=== PATIENT | female | born 1960 | race Caucasian/White ===

== ENCOUNTER 2016-12-08 17:26 | Emergency (ER) | payer OTHER ==
--- NOTE | 2016-12-08 18:37 | RAD ---
3 VIEWS LUMBAR SPINE: Date: 12/08/16 HISTORY: Right hip pain after tripping and falling on knees last week. FINDINGS: There are five non-rib bearing lumbar-type vertebral bodies. Multilevel degenerative changes are see n in the lower thoracic and upper lumbar spine. Narrowing of the intervertebral disc spaces at multi ple levels of the lower thoracic and upper lumbar spine are also present. There is exaggerated kypho sis of the lower thoracic spine. There is trace retrolisthesis of L2 on L3 and L3 on L4 with trace Grade I anterolisthesis of L4 on L 5, and to a greater degree L5 on S1. Facet degenerative change seen in the lower lumbar spine. No fr acture is seen. There is mild wedge-shaped deformity involving the T12 vertebral body. This was evlira lar in appearance to MRI of lumbar spine on 02/18/15. Levels of retrolisthesis and anterolisthesis w ere also present on that exam. IMPRESSION: 1. Multilevel degenerative changes involving the lumbar spine with trace retrolisthesis of L2 on L3 and L3 on L4 with trace Grade I anterolisthesis of L4 on L5, and to a greater degree of L5 on S1. 2. 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 POS: [facility]
--- NOTE | 2016-12-08 18:38 | RAD ---
2 VIEWS RIGHT HIP: Date: 12/08/16 HISTORY: Right hip pain after tripping and falling on knees last week. FINDINGS: Metallic screw overlies the junction of the inferior pubic ramus and pubic bone. There is no evidenc e of a fracture or dislocation. No significant joint space narrowing is appreciated. Phleboliths ove rlie the pelvis. IMPRESSION: No acute osseous abnormality right hip. POS: [facility]
== END 2016-12-08 18:40 | disposition home or self-care (01) ==
LOC: SCSER 17:26
DX: M54.31 Sciatica, right side (principal); I10 Essential (primary) hypertension; Z79.899 Other long term (current) drug therapy; W19.XXXA Unspecified fall, initial encounter
CPT/HCPCS: 72100

== ENCOUNTER 2017-01-15 14:31 | Outpatient (CLI) | payer OTHER ==
--- NOTE | 2017-01-15 16:31 | RAD ---
FIVE VIEWS LUMBAR SPINE: 01/15/17 HISTORY: Patient fell on knees two months ago and since this time has had buttock pain with pain radiating do wn right leg. COMPARISON: 12/08/16. FINDINGS: Again noted are five nonribbearing lumbar type vertebral bodies. There is stable trace retrolisthesi s of L2 on L3 and L3 on L4 with trace grade I anterolisthesis of L4 on L5 and to a greater degree L5 on S1. Vertebral body heights remain within normal limits. Multilevel osteophytes are again present, greate r involving the lower thoracic and upper lumbar spine. No fracture is seen. There has been no interv al change when compared to the prior exam. The trace anterolisthesis of L4 on L5 does appear to derrick ect between the flexion and extension views. The degree of anterolisthesis at the L5-S1 level does n ot appear to correct. IMPRESSION: 1. Multilevel degenerative changes involving the lumbar spine again with trace retrolisthesis o f L2 on L3 and L3 on L4 with grade I anterolisthesis of L4 on L5 and L5 on S1. The anterolisthesis a t the L4-5 level does correct between the flexion and extension views. 2. Chronic mild wedge shaped deformity of T12 vertebral body. POS: [facility]
--- NOTE | 2017-01-15 16:35 | RAD ---
CERVICAL SPINE FIVE VIEWS INCLUDING FLEXION AND EXTENSION LATERAL VIEWS. 01/15/17 HISTORY: 56-year-old female with neck pain for one year with pain radiating down right arm. Extensive multilevel disc osteophytosis and facet arthrosis. 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 There is fairly marked abnormal translation with anterolisthesis at C4-C5 and C5-C6 particularly in flexion with reduction of the anterolisthesis in extension. No significant pr evertebral soft tissue swelling. Uncovertebral and facet arthrosis changes. C1 and odontoid are part ially obscured on the AP open mouth view. IMPRESSION: Abnormal translation between flexion and extension at C4-C5 and C5-C6 which with much worsening ante rolisthesis in flexion rather than extension. 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 No evidence for other significant acute process. POS: [facility]
--- NOTE | 2017-01-15 16:47 | MRI ---
MRI CERVICAL SPINE NONCONTRAST: 01/15/17 HISTORY: Neck pain with right arm radiculopathy. FINDINGS: Bone marrow signal is within normal limits. There is desiccation of all the intervertebral discs. Re versal of the normal lordotic curvature of the lower cervical spine is apparent. C2-3: There is mild osteophytosis. The central canal and neural foraminal are patent. 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 The central canal and neural foramina remain patent. C4-5: There is 0.4 cm spondylolisthesis. Posterior osteophyte/disc complex, along with facet joint h ypertrophy and ligamentous thickening, result in severe stenosis of the central canal and moderate f lattening of the right ventral aspect of the spinal cord. No abnormal signal is apparent within the cord. There is severe right and moderate left foraminal stenosis. C5-6: There is 0.4 cm spondylolisthesis. circumferential degenerative changes result in severe steno sis of the central canal. No abnormal signal is apparent within the spinal cord. Uncovertebral and f acet hypertrophy result in severe left foraminal stenosis. The right neural foramen is patent. C6-7: There is disc space narrowing and minimal degenerative retrolisthesis. Circumferential degener ative changes result in severe central canal stenosis. Posterior osteophyte/disc complex is greater on the right, flattening the right ventral aspect of the spinal cord. No abnormal signal is apparent within the spinal cord. There is moderate right and severe left foraminal stenoses. C7-T1: There is disc space narrowing and minimal degenerative spondylolisthesis. Posterior disc prot rusion at this level is slightly greater to the right of midline, flattening the ventral and right v entral aspect of the spinal cord by approximately 30%. No abnormal signal is apparent within the spi nal cord. Uncovertebral and facet hypertrophy results in mild stenosis of each neural foramen at thi s level. IMPRESSION: Severe multilevel degenerative changes throughout the cervical spine, with central canal and foramin al stenoses as detailed above. No evidence of myelomalacia. POS: [facility]
--- NOTE | 2017-01-15 18:05 | MRI ---
MRI LUMBAR SPINE NONCONTRAST 01/15/17 HISTORY: Low back pain with radiation to right leg. FINDINGS: The conus medullaris has a normal appearance. There is desiccation of all of the intervertebral disc s. Discogenic end plate changes are present throughout the bone marrow. There are degenerative gant es of the lower thoracic spine with posterior disc protrusion partially visualized at the T10-11 lev el, greater to the left of midline. Mild chronic appearing wedging of the T1 and T12 vertebral shama s is apparent without residual bone marrow edema. T12-L1: There is disc space narrowing and osteophytosis. The central canal and neural foramina are p atent. L1-2: There is disc space narrowing and minimal degenerative retrolisthesis. Posterior disc bulge, a long with facet joint hypertrophy and ligamentous thickening, results in mild stenosis of the centra l canal and each neural foramen. L2-3: There is mild disc bulge. Osteophytosis involves each facet. The thecal sac remains patent. M ild stenosis of each neural foramen is apparent. L3-4: Posterior disc bulge, along with facet joint hypertrophy and ligamentous thickening, results i n mild stenosis of the central canal and each neural foramen. L4-5: There is very mild disc bulge. Prominent facet hypertrophy and ligamentous thickening is great er on the right than on the left. There is resultant very severe stenosis of the central canal and r ight neural foramen and moderate stenosis of the left neural foramen. L5-S1: Mild disc bulge is present. Degenerative changes result in mild stenosis of the central canal and moderate stenosis of each neural foramen. IMPRESSION: Prominent multilevel degenerative changes throughout the lumbar spine as detailed above, with centra l canal and right foraminal stenoses greatest at the L4-5 level. POS: [facility]
== END 2017-01-15 14:32 | disposition home or self-care (01) ==
LOC: SCSMRI 14:31
PROVIDERS: ATTEND Surgery
DX: M47.22 Other spondylosis with radiculopathy, cervical region (principal); M47.26 Other spondylosis with radiculopathy, lumbar region; M43.12 Spondylolisthesis, cervical region; M43.8X4 Other specified deforming dorsopathies, thoracic region; M99.83 Other biomechanical lesions of lumbar region; M99.81 Other biomechanical lesions of cervical region
CPT/HCPCS: 72050; 72110; 72141; 72148

== ENCOUNTER 2017-02-15 13:00 | Inpatient (IN) | payer OTHER ==
[2017-02-15 13:28] VITALS: BMI 35.4
[2017-02-18] MEDS ORDERED: Sodium Chloride 0.9% 10 ML ONE (12:10)
[2017-02-18] MEDS ORDERED: Thrombin 5000 UNITS/5 ML VIAL ONE (12:10)
[2017-02-18] MEDS ORDERED: Midazolam HCl 2 mg/2 ml Vial ONE (13:15)
[2017-02-18] MEDS ORDERED: Fentanyl 100 MCG/2 ML VIAL ONE ×4 (14:37→17:22)
[2017-02-18] MEDS ORDERED: Acetaminophen/Codeine 30-300mg Tablet PO PRN (16:50)
[2017-02-18] MEDS ORDERED: Fleet Enema 133 ML BOT PR PRN (16:50)
[2017-02-18] MEDS ORDERED: Bisacodyl 10 MG SUPP PR PRN (16:50)
[2017-02-18] MEDS ORDERED: Ondansetron HCl/PF 4 MG/2 ML Vial IVP PRN ×2 (16:50→16:58)
[2017-02-18] MEDS ORDERED: traMADol HCl 50 MG TAB PO PRN (16:50)
[2017-02-18] MEDS ORDERED: Milk Of Magnesia 30 ML UDCUP PO PRN (16:50)
[2017-02-18] MEDS ORDERED: Acetaminophen 325 MG TAB PO PRN (16:50)
[2017-02-18] MEDS ORDERED: Mag-Al 1200 mg/1200 mg/30 ML UDCUP PO PRN (16:50)
[2017-02-18] MEDS ORDERED: Promethazine HCl 25 MG/ML VIAL IM PRN ×2 (16:50→16:58)
[2017-02-18] MEDS ORDERED: diphenhydrAMINE 25 MG CAP PO PRN (16:53)
[2017-02-18] MEDS ORDERED: Promethazine HCl 25 MG/ML VIAL SLOW IVP PRN (16:58)
[2017-02-18] MEDS ORDERED: Dexamethasone 20 MG/5 ML VIAL ONE (17:02)
[2017-02-18] MEDS ORDERED: Ketorolac Tromethamine 30 MG/ML VIAL ONE (17:02)
[2017-02-18] MEDS ORDERED: Propofol 200 MG/20 ML VIAL ONE (17:02)
[2017-02-18] MEDS ORDERED: Ondansetron HCl/PF 4 MG/2 ML Vial ONE (17:02)
[2017-02-18] MEDS ORDERED: Vecuronium 10 MG VIAL ONE (17:02)
[2017-02-18] MEDS ORDERED: Glycopyrrolate 0.2 MG/ML 5 ML SYRINGE ONE (17:02)
[2017-02-18] MEDS: Morphine 4 MG/ML VIAL SLOW IVP PRN ×2 (19:50→22:31)
[2017-02-18] MEDS: Sodium Chloride 0.9% 1,000 ML IV SCH (19:50)
[2017-02-18] MEDS: CEFAZOLIN/Water 2 GM/20 ML SYRINGE SLOW IVP SCH (19:51)
[2017-02-18] MEDS: Lisinopril 10 MG TAB PO SCH (19:51)
[2017-02-18] MEDS: tiZANidine HCl 4 MG TAB PO PRN (19:52)
[2017-02-18] MEDS ORDERED: Milnacipran Hcl [Savella] 100 MG PO SCH ×2 (21:00)
[2017-02-18] MEDS ORDERED: clonazePAM 0.5 MG TAB PO SCH (21:00)
[2017-02-18] MEDS ORDERED: Nitrofurantoin Monohyd/M-Cryst 100 MG CAP PO SCH (21:00)
--- NOTE | 2017-02-18 22:11 | OP ---
DATE OF PROCEDURE: 02/19/2017 OR: OR #12 WOUND TYPE: Type 1 wound. SURGEON: Jose Luis Calix M.D. SUPERVISOR TOY ASSEMBLY: Zuhair Sheets PA-C PREPROCEDURE DIAGNOSIS: Mobile subluxation with neck and arm pain. POSTPROCEDURE DIAGNOSIS: Mobile subluxation with neck and arm pain. PROCEDURE: 1. Anterior C4-C5 and C5-C6 diskectomies with decompression of the common dural tube in the C5 and C 6 nerve roots. 2. Placement of interbody spacers C4-C5, C5-C6, packed with graft C4-C5, C5-C6 for arthrodesis. 3. Anterior cervical plate and screw fixation, C4, C5, C6. 4. Use of operative microscope for microdissection. PROCEDURE: After informed consent was obtained from the patient, the patient was brought to OR 12. Proper patient pause and identification was carried out. She was placed under excellent general endo tracheal anesthesia and positioned supine on the operating room table. All appropriate points were p added. We identified an anterior oblique meaghan that would allow from the right side an approach to C4 , C5, C6 segments. These regions were sterilely cleansed, prepared, and draped. Proper patient paus e and identification was carried out. The wound was then opened with a combination of sharp, monopol ar, and blunt dissection and we proceeded lateral to the larynx and pharynx and medial to the right c arotid sheath. We identified the prevertebral layer of deep cervical fascia and the longus colli mus cles were swept laterally. Distraction at C4-C5 then occurred in the spondylolisthesis was quite manisha dent. The disk space was then entered and the microscope was used for microdissection. We obtained excellent decompression of the common dural tube in the C5 nerve roots with the removal of the disk a nd preparation of the endplates. Interbody spacer of appropriate dimension was packed with graft and placed in C4-C5 for arthrodesis. We then turned our attention distraction at C5-C6 and a discectomy at C5-C6 was preformed as well. Excellent decompression of the common dural tube in the C6 nerve ro ots was then performed and interbody spacer of appropriate dimension was then packed with graft and a lso positioned at C5-C6. Satisfied with our decompression and our placement of the spacer, the micro scope was then removed and anterior cervical plate and screw fixation occurred at C4, C5, C6 with fin al tightening occurring. We were satisfied with both gross and fluoroscopic visualization of our con struct. Copious irrigation occurred throughout as is hemostasis. The wound was then closed in anato melina layers over a drain. The patient then emerged from anesthesia.
[2017-02-19] MEDS: CEFAZOLIN/Water 2 GM/20 ML SYRINGE SLOW IVP SCH ×2 (01:34→11:59)
[2017-02-19] MEDS: HYDROcodone/Acetaminophen 7.5/325 mg Tablet PO PRN ×3 (01:34→09:19)
[2017-02-19] MEDS: Sodium Chloride 0.9% 1,000 ML IV SCH (04:19)
[2017-02-19 04:35] VITALS: TEMP 98.6
[2017-02-19] MEDS: tiZANidine HCl 4 MG TAB PO PRN ×2 (05:18→11:39)
[2017-02-19] MEDS: Lisinopril 10 MG TAB PO SCH (08:38)
[2017-02-19] MEDS ORDERED: Loratadine 10 MG TAB PO SCH (09:00)
[2017-02-19] MEDS ORDERED: Folic Acid 1 MG TAB PO SCH (09:00)
[2017-02-19] MEDS ORDERED: Cholecalciferol (Vitamin D3) 400 UNITS TAB PO SCH (09:00)
[2017-02-19] MEDS ORDERED: Multivit, Therapeutic 1 TAB PO SCH (09:00)
[2017-02-19] MEDS ORDERED: Modafinil 100 MG TAB PO SCH (09:00)
--- NOTE | 2017-02-19 09:14 | PRG ---
DATE OF SERVICE: 02/19/2017 Ms. Cano is postoperative day 1 from C4-C6 ACDF. She is doing well, as expected, she has neck and shoulder pain simply from surgical stabilization and essential changes in her alignment. Otherwise s he moves all extremities to command. Her drain output has been minimal. We went over intraoperative and postoperative issues and we will plan for dismissal.
[2017-02-19 12:27] VITALS: BP 132/74
[2017-02-19] MEDS ORDERED: Estradiol 1 MG TAB PO SCH (21:00)
== END 2017-02-19 12:30 | disposition home or self-care (01) | DRG 472 ==
LOC: SURG A 02-18 09:32 → SURG B 02-18 18:17
PROVIDERS: ADMIT Surgery; ATTEND Surgery
PROC: 0RT30ZZ Resection of Cervical Vertebral Disc, Open Approach (ICD-10-PCS; principal; 2017-02-19)
PROC: 0RG20J0 Fusion of 2 or more Cervical Vertebral Joints with Synthetic Substitute, Anterior Approach, Anterior Column, Open Approach (ICD-10-PCS; 2017-02-19)
DX: M43.12 Spondylolisthesis, cervical region (principal); M47.12 Other spondylosis with myelopathy, cervical region; M54.12 Radiculopathy, cervical region; M79.7 Fibromyalgia; M71.38 Other bursal cyst, other site; M51.36 Other intervertebral disc degeneration, lumbar region
CPT/HCPCS: 36416; 76000; 80048; 85027; 85610; 85730; 93005; 93010; A4216; C1713; C1768; J1100; J1885; J2250; J2270; J2405; J2704; J3010; J3490

== ENCOUNTER 2017-02-15 13:10 | Outpatient (CLI) | payer OTHER ==
[2017-02-15 14:51] LABS: Hematocrit 36.5 % (36.0-47.0); Mean Platelet Volume 6.5 fL (7.4-10.4); Red Blood Cell (RBC) Count 3.82 mill/uL (4.20-5.40); White Blood Cell (WBC) Count 9.9 thou/uL (4.8-10.8)
[2017-02-15 14:59] LABS: PTT 28.8 SEC (22.9-36.1); Prothrombin Time 12.8 SEC (12.0-14.7)
[2017-02-15 15:19] LABS: Anion Gap 10 mmol/L (10-20); BUN (Urea Nitrogen) 13 mg/dL (9.8-20.1); Calc. Creatinine Clearance 0 mL/min (70-130); Calcium 8.8 mg/dL (7.8-10.44); Carbon Dioxide 25 mmol/L (22-29); Chloride 111 mmol/L (98-107); Estimated GFR-MDRD 73
--- NOTE | 2017-02-15 18:11 | EKG ---
Test Reason : Blood Pressure : / mmHG Vent. Rate : 091 BPM Atrial Rate : 091 BPM P-R Int : 160 ms QRS Dur : 090 ms QT Int : 364 ms P-R-T Axes : 031 008 008 degrees QTc Int : 447 ms Normal sinus rhythm Moderate voltage criteria for LVH, may be normal variant Borderline ECG When compared with ECG of 04-SEP-2014 12:23, T wave inversion now evident in Inferior leads , particularly III and aVF Confirmed by MICHELLE GUERRIER ([id number]) on 02/15/2017 6:11:05 PM Referred By: GIBRAN Confirmed By:MICHELLE GUERRIER
== END 2017-02-15 13:11 | disposition home or self-care (01) ==
LOC: LABBT 13:10
PROVIDERS: ATTEND Surgery
DX: Z01.818 Encounter for other preprocedural examination (principal); M54.12 Radiculopathy, cervical region; M47.12 Other spondylosis with myelopathy, cervical region
CPT/HCPCS: 80048; 85027; 85610; 85730; 93005; 93010

== ENCOUNTER 2017-03-29 12:37 | Outpatient (CLI) | payer OTHER ==
--- NOTE | 2017-03-29 13:54 | RAD ---
CERVICAL SPINE 2 VIEWS: Date: 03/29/17 HISTORY: M54.12, cervical radiculopathy. COMPARISON: None. FINDINGS: There is ACDF hardware at C4-C6. No significant osseous appropriation of the disc spaces. 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 Relative to the prior MRI examination, the listhesis at C4-5 is improved. No evidence for hardware failure. FINDINGS: Satisfactory appearance to the ACDF hardware without hardware complication. POS: [facility]
== END 2017-03-29 12:38 | disposition home or self-care (01) ==
LOC: TBSIIMAG 12:37
PROVIDERS: ATTEND Surgery
DX: M54.12 Radiculopathy, cervical region (principal); Z98.1 Arthrodesis status
CPT/HCPCS: 72040

== ENCOUNTER 2017-07-16 09:00 | Outpatient (CLI) | payer OTHER ==
[2017-07-16 14:55] LABS: Mean Corpuscular HGB CONC 33.9 g/dL (32.0-36.0); Mean Corpuscular Hemoglobin 32.5 pg (27.0-31.0); Mean Corpuscular Volume 95.7 fl (81.0-99.0); Mean Platelet Volume 6.6 fL (7.4-10.4); Platelet Count 214 thou/uL (130-400); RBC Distribution Width 11.2 % (11.5-14.5); Red Blood Cell (RBC) Count 3.68 mill/uL (4.20-5.40)
[2017-07-16 15:01] LABS: Prothrombin Time 13.6 SEC (12.0-14.7)
[2017-07-16 15:17] LABS: Anion Gap 10 mmol/L (10-20); BUN (Urea Nitrogen) 13 mg/dL (9.8-20.1); Calc. Creatinine Clearance 0 mL/min (70-130); Calcium 8.7 mg/dL (7.8-10.44); Carbon Dioxide 25 mmol/L (22-29); Chloride 109 mmol/L (98-107); Estimated GFR-MDRD 71; Glucose 111 mg/dL (70-105); Potassium 4.5 mmol/L (3.5-5.1); Sodium 139 mmol/L (136-145)
--- NOTE | 2017-07-16 16:49 | EKG ---
Test Reason : Blood Pressure : / mmHG Vent. Rate : 081 BPM Atrial Rate : 081 BPM P-R Int : 168 ms QRS Dur : 086 ms QT Int : 356 ms P-R-T Axes : 034 010 023 degrees QTc Int : 413 ms Normal sinus rhythm Minimal voltage criteria for LVH, may be normal variant Borderline ECG When compared with ECG of 15-FEB-2017 13:51, No significant change was found Confirmed by DR. Pippa SIMONS ([id number]) on 07/16/2017 4:49:08 PM Referred By: GIBRAN Confirmed By:DR. Pippa SIMONS
== END 2017-07-16 09:01 | disposition home or self-care (01) ==
LOC: LABBT 09:00
PROVIDERS: ATTEND Surgery
DX: Z01.818 Encounter for other preprocedural examination (principal); M71.30 Other bursal cyst, unspecified site; M51.16 Intervertebral disc disorders with radiculopathy, lumbar region
CPT/HCPCS: 80048; 85027; 85610; 85730; 93005; 93010

== ENCOUNTER 2017-07-20 10:19 | Day surgery (SDC) | payer OTHER ==
[2017-07-20] MEDS ORDERED: CEFAZOLIN/Water 2 GM/20 ML SYRINGE ONE (12:56)
[2017-07-20] MEDS ORDERED: Glycopyrrolate 0.2 MG/ML 5 ML SYRINGE ONE (13:27)
[2017-07-20] MEDS ORDERED: Metoclopramide HCl 10 MG/2 ML VIAL ONE ×2 (13:27→15:27)
[2017-07-20] MEDS ORDERED: PROPOFOL 200 MG/20 ML VIAL ONE (13:27)
[2017-07-20] MEDS ORDERED: ePHEDrine/0.9% NaCl/PF SYRINGE 50 mg/10 ml ONE (13:27)
[2017-07-20] MEDS ORDERED: Ondansetron HCl/PF 4 MG/2 ML Vial ONE ×2 (13:27→15:27)
[2017-07-20] MEDS ORDERED: Ketorolac Tromethamine 30 MG/ML VIAL ONE (13:27)
[2017-07-20] MEDS ORDERED: Dexamethasone 20 MG/5 ML VIAL ONE (13:27)
[2017-07-20] MEDS ORDERED: PHENYLEPHRINE-NS 100 MCG/ML 10 ML SYRINGE ONE (13:27)
[2017-07-20] MEDS ORDERED: Lidocaine 1% PF 5 ML VIAL ONE (13:27)
[2017-07-20] MEDS ORDERED: Bacitracin Zinc Ointment 30 gm TUBE ONE (13:45)
[2017-07-20] MEDS ORDERED: Thrombin 5000 UNITS/5 ML VIAL ONE (13:45)
[2017-07-20] MEDS ORDERED: Sodium Chloride 0.9% 10 ML ONE (13:45)
[2017-07-20] MEDS ORDERED: Fentanyl 100 MCG/2 ML VIAL ONE ×3 (13:48→17:23)
[2017-07-20] MEDS ORDERED: Midazolam HCl 2 mg/2 ml Vial ONE ×2 (14:15→14:16)
[2017-07-20] MEDS ORDERED: HYDROmorphone 0.5 MG/0.5 ML SYRINGE ONE (16:30)
[2017-07-20] MEDS ORDERED: Milk Of Magnesia 30 ML UDCUP PO PRN (16:56)
[2017-07-20] MEDS ORDERED: Bisacodyl 10 MG SUPP PR PRN (16:56)
[2017-07-20] MEDS ORDERED: traMADol HCl 50 MG TAB PO PRN (16:56)
[2017-07-20] MEDS ORDERED: Promethazine HCl 25 MG/ML VIAL IM PRN (16:56)
[2017-07-20] MEDS ORDERED: Acetaminophen 325 MG TAB PO PRN (16:56)
[2017-07-20] MEDS ORDERED: Acetaminophen/Codeine 30-300mg Tablet PO PRN (16:56)
[2017-07-20] MEDS ORDERED: Fleet Enema 133 ML BOT PR PRN (16:56)
[2017-07-20] MEDS ORDERED: tiZANidine HCl 4 MG TAB PO PRN (16:56)
[2017-07-20] MEDS ORDERED: Morphine 4 MG/ML VIAL SLOW IVP PRN (16:56)
[2017-07-20] MEDS ORDERED: Mag-Al 1200 mg/1200 mg/30 ML UDCUP PO PRN (16:56)
[2017-07-20] MEDS ORDERED: Sodium Chloride 0.9% 1,000 ML IV SCH (17:00)
[2017-07-20] MEDS ORDERED: diphenhydrAMINE 25 MG CAP PO PRN (17:01)
[2017-07-20 18:46] VITALS: BMI 37.8
[2017-07-20] MEDS: Lisinopril 10 MG TAB PO SCH (20:17)
[2017-07-20] MEDS: Cyclobenzaprine 10 MG TAB PO SCH (20:17)
[2017-07-20] MEDS: HYDROcodone/Acetaminophen 7.5/325 mg Tablet PO PRN (20:17)
[2017-07-20] MEDS ORDERED: Milnacipran Hcl [Savella] 100 MG PO SCH (21:00)
[2017-07-20] MEDS ORDERED: clonazePAM 0.5 MG TAB PO SCH (21:00)
[2017-07-20] MEDS ORDERED: Estradiol 1 MG TAB PO SCH (21:00)
[2017-07-20] MEDS: CEFAZOLIN/Water 2 GM/20 ML SYRINGE SLOW IVP SCH (21:51)
[2017-07-21] MEDS: CEFAZOLIN/Water 2 GM/20 ML SYRINGE SLOW IVP SCH (06:50)
[2017-07-21] MEDS: Lisinopril 10 MG TAB PO SCH (08:53)
[2017-07-21] MEDS: Cyclobenzaprine 10 MG TAB PO SCH (08:54)
[2017-07-21] MEDS ORDERED: Loratadine 10 MG TAB PO SCH (09:00)
[2017-07-21] MEDS ORDERED: Modafinil 100 MG TAB PO SCH (09:00)
[2017-07-21] MEDS ORDERED: Multivit, Therapeutic 1 TAB PO SCH (09:00)
[2017-07-21] MEDS: HYDROcodone/Acetaminophen 7.5/325 mg Tablet PO PRN (09:12)
[2017-07-21 11:43] VITALS: BP 128/80; TEMP 98.2
--- NOTE | 2017-07-21 12:44 | OP ---
DATE OF SURGERY: 07/20/2017 PREPROCEDURE DIAGNOSES: L4-5 synovial cyst with low back and right greater than left leg pain with l umbosacral stenosis. SURGEON: Jose Luis Calix M.D. ASSISTANT PROFESSOR OF MARINE BIOLOGY: Zuhair Sheets PA-C. PROCEDURES: 1. L4-L5 synovial cyst resection. 2. L5-S1 laminectomy, partial facetectomy, and foraminotomies. DESCRIPTION OF PROCEDURE: After informed consent was obtained from the patient, patient was brought to OR 12. Proper patient pause and identification was carried out. The L4-L5, L5-S1 segments were i dentified. A linear meaghan was made over this region. This area was sterilely cleansed, prepared, and draped. Proper patient pause and identification was carried out. The wound was then opened with a combination of sharp monopolar and blunt dissection. The L4-L5, L5-S1 segments were exposed and loca lization film confirmed our area of interest. We then performed an L4-L5 laminectomy and synovial cy st resection. The cyst was quite adherent to the dura. Her dura was also quite attenuated and thin, but there was no spinal fluid leak. I assured freedom of bilateral L4 and L5 nerve roots. I then t urned my attention to L5-S1 laminectomy, partial facetectomy and foraminotomies with excellent decomp ression of the S1 nerve roots as well. Again, there was no spinal fluid leak. Copious irrigation oc curred. Hemostasis was maximized throughout. The wound was then closed in anatomic layers. The pat ient was then emerged from anesthesia.
--- NOTE | 2017-07-21 16:57 | DIS ---
Zuhair Sheets PA-C., dictating for Jose Luis Calix MD DATE OF ADMISSION: 07/20/2017 DATE OF DISCHARGE: 07/21/2017 DISCHARGE DIAGNOSES: 1. Low back pain with bilateral leg radiculopathy. 2. Lumbar stenosis. 3. Lumbar synovial cyst. HOSPITAL COURSE: Ms. Cano was admitted on 07/20/2017 to undergo L4-S1 laminectomies, removal of a facet cyst on the right at L4-5. Postoperatively, the patient states she is doing well. She states her incision causes her pain. In regard to her bilateral lower extremity pain, she states she is uns ure if this is improved postoperatively, although perhaps maybe a slight improvement after all. She currently meets our criteria for discharge. She has good strength in the bilateral lower extremities with intact sensation to light touch throughout. I have provided prescriptions, appropriate patient education, and outpatient followups have been scheduled. Patient really overall is pleased with her outcome postoperatively, but does understand she needs continued time to heal. She will call the [facility] with any questions or concerns prior to her next followup appointment.
== END 2017-07-21 12:25 | disposition home or self-care (01) ==
LOC: SDC 10:19 → SURG B 18:01 → SDC 07-21 12:25
PROVIDERS: ATTEND Surgery
PROC: 01NB0ZZ Release Lumbar Nerve, Open Approach (ICD-10-PCS; principal; 2017-07-21)
DX: M71.38 Other bursal cyst, other site (principal); M54.16 Radiculopathy, lumbar region; M48.061 Spinal stenosis, lumbar region without neurogenic claudication; Z91.041 Radiographic dye allergy status; Z91.013 Allergy to seafood; Z91.048 Other nonmedicinal substance allergy status; Z88.1 Allergy status to other antibiotic agents
CPT/HCPCS: 76001; 96374; A4216; J0131; J1100; J1170; J1885; J2001; J2250; J2405; J2704; J2765; J3010; J3370; J3490

== ENCOUNTER 2018-03-10 08:07 | Outpatient (CLI) | payer OTHER ==
--- NOTE | 2018-03-10 09:11 | RAD ---
LUMBAR SPINE FOUR VIEWS: History: 57-year-old female with history of lumbar radiculopathy. Comparison: 02-11-17 FINDINGS: Multilevel disc osteophytosis. Somewhat exaggerated lordosis, stable. No significant abnormal transla tion between flexion and extension. IMPRESSION: Stable appearing lumbar spine with somewhat exaggerated lordosis. Stable alignment. Evidence for lami nectomy at L5. POS: [facility]
--- NOTE | 2018-03-10 12:45 | MRI ---
MRI LUMBAR SPINE WITH AND WITHOUT CONTRAST: HISTORY: M54.16, lumbar radiculopathy. COMPARISON: Radiograph from same day. FINDINGS: There is a T2 and T1 mildly hyperintense mass in the superior pole right kidney which appears to have some enhancement. Aortic contour is nonaneurysmal. No retroperitoneal adenopathy. No marrow infiltrative process. No acute fracture or malalignment. No listhesis. Levels are as follows: L1-2: There is a circumferential disk-osteophyte complex. Mild effacement of the ventral CSF space. There is mild facet arthropathy. No neural foraminal or spinal canal narrowing. L2-3: There is d egenerative disk space height loss with 2 mm retrolisthesis. Moderate facet arthropathy. Mild effac ement of the ventral CSF space without significant spinal canal narrowing. No significant neural for aminal narrowing. L3-4: Circumferential disk bulge, mild. Mild hypertrophic facet arthropathy. A combination of thes e 2 findings causes mild to moderate right and mild left-sided neural foraminal narrowing. L4-5: There is a low-grade disk desiccation. Small bilateral subforaminal disk-osteophyte complex o n the left and moderate-sized on the right. Moderate right-sided neural foraminal narrowing. There appears to be some scar along the right-sided neural foramen. This scar encases the right-sided exit ing nerve root. L5-S1: Mild degenerative disk space height loss posteriorly. Mild right lateral recess and subforam inal disk-osteophyte complex. Moderate facet arthropathy. Moderate bilateral neural foraminal narro wing. Laminectomy changes at L4 and L5. There is extensive scarring in the posterior soft tissues. IMPRESSION: Mild to moderate spondylosis as described above with what appears to be some enhancing scar along the encasing of the right exiting L4 nerve root. POS: [facility]
== END 2018-03-10 08:08 | disposition home or self-care (01) ==
LOC: SCSMRI 08:07
PROVIDERS: ATTEND Surgery
DX: M47.26 Other spondylosis with radiculopathy, lumbar region (principal); M40.56 Lordosis, unspecified, lumbar region; Z98.890 Other specified postprocedural states
CPT/HCPCS: 72100; 72158

== ENCOUNTER 2018-11-03 11:18 | Outpatient (CLI) | payer OTHER ==
--- NOTE | 2018-11-03 16:38 | ULT ---
RIGHT UPPER QUADRANT ULTRASOUND: 11/03/18 COMPARISON: None. HISTORY: Epigastric pain. TECHNIQUE: Multiplanar barbosa scale sonographic imaging of the right upper quadrant obtained. FINDINGS: The patient reports a history of cholecystectomy. The pancreas is obscured by bowel gas as is the lef t lobe of the liver. Imaged hepatic parenchyma grossly unremarkable. Senior Svp reports a negative Wells's sign. The common bile duct measures approximately 8 mm, likely within normal limits secondary to prior chol ecystectomy. The right kidney measures 8.8 cm in craniocaudal dimension and demonstrates no stone, hydronephrosis or mass. IMPRESSION: No acute findings. Status post cholecystectomy. POS: [facility]
== END 2018-11-03 11:19 | disposition home or self-care (01) ==
LOC: SCSULT 11:18
PROVIDERS: ATTEND Family Medicine
DX: R10.11 Right upper quadrant pain (principal); Z90.49 Acquired absence of other specified parts of digestive tract
CPT/HCPCS: 76705

== ENCOUNTER 2018-11-21 09:25 | Outpatient (CLI) | payer OTHER ==
[2018-11-21 12:02] LABS: #Eosinphils 0.2 thou/uL (0.0-0.7); #Lymphocytes 1.9 thou/uL (1.20-3.40); #Monocytes 0.5 thou/uL (0.11-0.59); #Neutrophils 6.4 thou/uL (1.40-6.50); %Basophils 0.3 % (0.0-1.0); %Lymphocytes 20.7 % (21.0-51.0); %Monocytes 5.7 % (0.0-10.0); %Neutrophils 71.4 % (42.0-75.0); Mean Corpuscular HGB CONC 33.2 g/dL (32.0-36.0); Mean Corpuscular Hemoglobin 30.5 pg (27.0-31.0); Mean Corpuscular Volume 91.9 fL (78.0-98.0); Mean Platelet Volume 7.3 fL (7.4-10.4); Platelet Count 201 thou/uL (130-400); RBC Distribution Width 11.3 % (11.5-14.5); Red Blood Cell (RBC) Count 3.92 mill/uL (4.20-5.40)
[2018-11-21 12:24] LABS: ALT (SGPT) 16 U/L (8-55); AST (SGOT) 19 U/L (5-34); Albumin 4.2 g/dL (3.5-5.0); Alkaline Phosphatase 93 U/L (40-150); Anion Gap 14 mmol/L (10-20); BUN (Urea Nitrogen) 16 mg/dL (9.8-20.1); Bilirubin, Total 0.2 mg/dL (0.2-1.2); Calc. Creatinine Clearance 0 mL/min (70-130); Calcium 9.3 mg/dL (7.8-10.44); Carbon Dioxide 21 mmol/L (22-29); Chloride 109 mmol/L (98-107); Estimated GFR-MDRD 69; Globulin 2.6 g/dL (2.4-3.5); Glucose 107 mg/dL (70-105); Protein, Total 6.8 g/dL (6.0-8.3); Sodium 140 mmol/L (136-145)
--- NOTE | 2018-11-21 15:25 | EKG ---
Test Reason : Blood Pressure : / mmHG Vent. Rate : 083 BPM Atrial Rate : 083 BPM P-R Int : 162 ms QRS Dur : 088 ms QT Int : 344 ms P-R-T Axes : 040 010 039 degrees QTc Int : 404 ms Normal sinus rhythm Cannot rule out Anterior infarct , age undetermined Abnormal ECG When compared with ECG of 16-JUL-2017 14:29, No significant change was found Confirmed by DR. Pippa SIMONS ([id number]) on 11/21/2018 3:24:51 PM Referred By: MARY CARMEN Confirmed By:DR. Pippa SIMONS
== END 2018-11-21 09:26 | disposition home or self-care (01) ==
LOC: LABBT 09:25
PROVIDERS: ATTEND Surgery
DX: Z01.818 Encounter for other preprocedural examination (principal); K43.2 Incisional hernia without obstruction or gangrene
CPT/HCPCS: 80053; 85025; 93005; 93010

== ENCOUNTER 2018-11-24 05:45 | Day surgery (SDC) | payer OTHER ==
[2018-11-21 10:40] VITALS: BMI 33.5
[2018-11-24] MEDS ORDERED: Bupivacaine/Epinephrine 0.25% 30 ML VIAL ONE (06:36)
[2018-11-24] MEDS ORDERED: Fentanyl 100 MCG/2 ML VIAL ONE (06:37)
[2018-11-24] MEDS ORDERED: Midazolam HCl 2 mg/2 ml Vial ONE (07:10)
--- NOTE | 2018-11-24 16:26 | OP ---
DATE OF PROCEDURE: 11/24/2018 PREOPERATIVE DIAGNOSIS: Incisional hernia. POSTOPERATIVE DIAGNOSIS: Incisional hernia PROCEDURE PERFORMED: Laparoscopic Da Kamala incisional hernia repair with mesh, [address] ANESTHESIA: General. ESTIMATED BLOOD LOSS: 50 mL. COMPLICATIONS: None. FINDINGS: Moderate to large size recurrent hernia near the supraumbilical area. DESCRIPTION OF PROCEDURE: The patient was taken to the operating room and laid supine on the operating room table. After general anesthetic was obtained, the abdomen was prepped and draped in a sterile fashion. A Eldridge catheter had been placed. A curved incision was made below the umbilicus. Cautery was dissected down to and score the fascia. Abdominal cavity was entered bluntly causing a Jennifer clamp. An 11-mm robot trocar was placed. High-flow pneumoperitoneum was obtained. There was a hernia just above the umbilicus. There was significant amount of intraabdominal adhesions to the previous mesh. Left and right abdominal 8-mm robot trocars were placed. All adhesions were taken down. No injury to any intraabdominal structures during that portion of the procedure. #1 V-Loc was used to close the fascial defect transversely. An 8-cm Ventralex ST mesh brought into the sterile field and placed to cover the closure circumferentially. The exposed mesh was placed against the posterior fascia. The nonadherent barrier was placed down against the abdominal viscera. The mesh was sewn in place using 2-0 V-Loc suture. There was no injury to any intraabdominal structures. No ongoing bleeding. All port sites were infiltrated using local anesthetic. All ports were removed under camera visualization and pneumoperitoneum was let down. PDS was used to close the fascial defect below the umbilicus. All incisions were irrigated and closed using 4-0 Monocryl and Dermabond. The patient was sent to Recovery in stable condition. All instrument counts, needle counts, and lap counts were correct. Job ID: [id number]
== END 2018-11-24 12:45 | disposition home or self-care (01) ==
LOC: SDC 05:45
PROVIDERS: ATTEND Surgery
PROC: 0WUF4JZ Supplement Abdominal Wall with Synthetic Substitute, Percutaneous Endoscopic Approach (ICD-10-PCS; principal; 2018-11-24)
DX: K43.2 Incisional hernia without obstruction or gangrene (principal); I10 Essential (primary) hypertension; F32.9 Major depressive disorder, single episode, unspecified; M19.90 Unspecified osteoarthritis, unspecified site; Z79.899 Other long term (current) drug therapy; Z88.8 Allergy status to other drugs, medicaments and biological substances; Z88.1 Allergy status to other antibiotic agents; Z91.013 Allergy to seafood; Z91.041 Radiographic dye allergy status
CPT/HCPCS: C1781; J0690; J2250; J3010

== ENCOUNTER 2019-05-30 15:41 | Outpatient (CLI) | payer OTHER ==
--- NOTE | 2019-05-30 16:25 | RAD ---
Sacrum/coccyx 3 views HISTORY: Pain. FINDINGS: Sacral alae are intact. There is either incomplete posterior fusion of the L5 vertebra or s urgical absence of the posterior elements. No acute fracture, dislocation, or aggressive osseous erosions. Metallic anchors at the pubic symphys is. IMPRESSION : No acute osseous abnormalities are demonstrated.
== END 2019-05-30 15:42 | disposition home or self-care (01) ==
LOC: RAD 15:41
PROVIDERS: ATTEND Nurse Practitioner Family
DX: M53.3 Sacrococcygeal disorders, not elsewhere classified (principal)
CPT/HCPCS: 72220

== ENCOUNTER 2022-06-24 12:50 | Outpatient (CLI) | payer OTHER, MEDICARE | END 2022-06-24 12:51 | disposition home or self-care (01) | LOC: SCSMRI 12:50 | PROVIDERS: ATTEND Nurse Practitioner Family | DX: M48.061 Spinal stenosis, lumbar region without neurogenic claudication (principal); M47.816 Spondylosis without myelopathy or radiculopathy, lumbar region; M47.815 Spondylosis without myelopathy or radiculopathy, thoracolumbar region; M47.817 Spondylosis without myelopathy or radiculopathy, lumbosacral region | CPT/HCPCS: 72148 ==

== ENCOUNTER 2023-08-04 14:27 | Outpatient (CLI) | payer OTHER, MEDICARE | END 2023-08-04 14:28 | disposition home or self-care (01) | LOC: SCSMRI 14:27 | PROVIDERS: ATTEND Nurse Practitioner Family | DX: M47.22 Other spondylosis with radiculopathy, cervical region (principal); G95.20 Unspecified cord compression; Z98.890 Other specified postprocedural states | CPT/HCPCS: 72141 ==